=== PATIENT | female | born 1980 | race Hispanic/Latino ===

== ENCOUNTER 2019-07-12 21:57 | Inpatient (IN) | payer MEDICAID | END 2019-07-13 19:45 | disposition home or self-care (01) | LOC: EDH 21:57 → LDH 07-13 00:21 ==

== ENCOUNTER 2019-07-14 14:54 | Observation (INO) | payer MEDICAID | END 2019-07-14 15:10 | disposition home or self-care (01) | LOC: LDH 14:54 | PROVIDERS: ADMIT Internal Medicine; ATTEND Internal Medicine | DX: Z34.93 Encounter for supervision of normal pregnancy, unspecified, third trimester (principal); Z3A.00 Weeks of gestation of pregnancy not specified | CPT/HCPCS: 96372; G0378 ==

== ENCOUNTER → 2021-05-22 | Outpatient (CLI) | payer OTHER | END | disposition home or self-care (01) | LOC: RAH 15:02 | PROVIDERS: ATTEND Family Medicine | DX: R10.2 Pelvic and perineal pain (principal) | CPT/HCPCS: 76856 ==